=== PATIENT | male | born 1965 | race Caucasian/White ===

== ENCOUNTER → 2016-06-01 | Outpatient (CLI) | payer OTHER ==
[~2016-06-01] MED LIST: AMIL5TAB15 PO; AMLO-114 PO; CARB25TA12 PO; CARV12.52 PO; CIPR-255 PO; OXYC-57 PO
[2016-06-01 15:34] LABS: BASO % 0.6 %; BASO ABS # 0.04 K/uL (0-0.2); COMPLETE YES; EOS % 1.4 %; HEMATOCRIT 40.6 % (42-52); IG% 0.2 %; LYMPH % 27.6 %; MEAN CELL VOLUME 79.5 fL (80-100); MEAN CORPUSCULAR HEMOGLOBIN 28.2 pg (25-34); MEAN CORPUSCULAR HGB CONC 35.5 g/dl (32-36); MEAN PLATELET VOLUME 9.8 fL (7.4-10.4); MONO % 9.6 %; NEUT % 60.6 %; PLATELET COUNT 236 K/uL (130-400); RED BLOOD COUNT 5.11 M/uL (4.7-6.1); WHITE BLOOD COUNT 6.53 K/uL (4.8-10.8)
[2016-06-01 15:55] LABS: BLOOD UREA NITROGEN 9 mg/dl (7-18); BUN/CREATININE RATIO 11.9 (10-20); CALCIUM 8.7 mg/dl (8.5-10.1); CARBON DIOXIDE 29 mmol/L (21-32); CHLORIDE 102 mmol/L (98-107); CREATININE 0.79 mg/dl (0.60-1.40); GLUCOSE 83 mg/dl (70-99); POTASSIUM 3.8 mmol/L (3.5-5.1); SODIUM 139 mmol/L (136-145)
[2016-06-01 15:57] LABS: ALT/SGPT 24 U/L (12-78); AST/SGOT 15 U/L (15-37); BLOOD UREA NITROGEN 9 mg/dl (7-18); BUN/CREATININE RATIO 12.6 (10-20); CALCIUM 8.8 mg/dl (8.5-10.1); CARBON DIOXIDE 29 mmol/L (21-32); CHLORIDE 102 mmol/L (98-107); CREATININE 0.74 mg/dl (0.60-1.40); GLUCOSE 83 mg/dl (70-99); POTASSIUM 3.8 mmol/L (3.5-5.1); SODIUM 139 mmol/L (136-145)
[2016-06-01 15:59] LABS: ALB/GLOB RATIO 1.2 (0.9-2); ALKALINE PHOSPHATASE 69 U/L (45-117)
== END | disposition home or self-care (01) ==
LOC: C.LAB 14:41
PROVIDERS: ATTEND Surgery
DX: K80.20 Calculus of gallbladder without cholecystitis without obstruction (principal); E87.6 Hypokalemia

== ENCOUNTER → 2016-06-01 | Outpatient (CLI) | payer OTHER ==
--- NOTE | 2016-06-01 09:01 | DIAGNOSTIC IMAGING REPORT ---
ABDOMINAL ULTRASOUND, RIGHT UPPER QUADRANT HISTORY: Lower abdominal pain.. COMPARISON: Abdomen and pelvis CT 07/27/2015. FINDINGS: Pancreas: Obscured by overlying bowel gas. Liver: Slightly heterogeneous. However, no masses identified. Gallbladder: There are multiple stones filling the gallbladder. Gallbladder wall is borderline thickened at 3 mm. The technologist reported a positive sonographic Blount's sign. CBD: Mildly distended common bile duct at 7 mm. Right kidney: No hydronephrosis. There are 2 cysts within the lower pole with the largest measuring 5.4 cm. Miscellaneous: No ventral hernia identified by ultrasound. IMPRESSION: 1. Multiple gallstones filling the gallbladder with borderline gallbladder wall thickening. The technologist reported a positive sonographic Blount's sign. Therefore, this is concerning for acute cholecystitis. Clinical correlation recommended. 2. Right renal cysts. 3. The pancreas was obscured by overlying bowel gas. Electronically signed by: Alexys Mchugh M.D. 06/01/2016 9:00 AM Dictated Date/Time: 06/01/2016 8:57 AM
== END | disposition home or self-care (01) ==
LOC: C.ULTR 08:06
PROVIDERS: ATTEND Family Medicine
DX: R10.10 Upper abdominal pain, unspecified (principal); K80.20 Calculus of gallbladder without cholecystitis without obstruction; N28.1 Cyst of kidney, acquired; E87.6 Hypokalemia

== ENCOUNTER 2016-06-02 12:17 | Observation (INO) | payer OTHER ==
[2016-06-01 16:03] VITALS: BMI 25.0
[~2016-06-02] VITALS: Ht 180.3 cm; Wt 81.8 kg
--- NOTE | 2016-06-02 08:31 | History & Physical Bridge Note ---
H&P Re-Evaluation Bridge Note: I have examined the patient, reviewed the History & Physical and in the interval since the performance of the History & Physical I have noted the following changes of clinical significance: No changes noted
[~2016-06-02 12:17] MED LIST changes: -AMIL5TAB15 PO; -CIPR-255 PO; +LACTATED RINGER'S 1000ML 1,000 ML IV SCH; -OXYC-57 PO
[2016-06-02] MEDS ORDERED: AMIL5TAB15 PO (13:12)
[2016-06-02 13:14] VITALS: BP 157/97; PULSE 53; TEMP 36.6; O2SAT 98; Ht 180.3 cm; Wt 81.8 kg
--- NOTE | 2016-06-02 14:53 | History & Physical Bridge Note ---
H&P Re-Evaluation Bridge Note: I have examined the patient, reviewed the History & Physical and in the interval since the performance of the History & Physical I have noted the following changes of clinical significance: No changes noted so at bedside
[2016-06-02] MEDS ORDERED: MIDAZOLAM HCL 1 MG/ML 2ML VIAL ONE (14:57)
[2016-06-02] MEDS ORDERED: FENTANYL CITRATE INJ 50 MCG/1 ML 2 ML VIAL ONE ×2 (14:57→17:01)
[2016-06-02] MEDS ORDERED: PHENYLEPHRINE 100MCG/ML 5ML SYR IV PRN (15:30)
[2016-06-02] MEDS ORDERED: EpHEDrine SULFATE INJ 50 MG/ML AMP IV PRN (15:30)
[2016-06-02] MEDS ORDERED: ATROPINE SULFATE 0.1 MG/ML 5ML SYR IV PRN (15:30)
[2016-06-02] MEDS ORDERED: ONDANSETRON INJ 2 MG/ML 2 ML VIAL IV PRN ×2 (15:30→17:15)
[2016-06-02] MEDS ORDERED: PROPOFOL IV EMULSION 10 MG/ML 20 ML VIAL IV ONE (16:07)
[2016-06-02] MEDS ORDERED: ONDANSETRON INJ 2 MG/ML 2 ML VIAL ONE (16:07)
[2016-06-02] MEDS ORDERED: ROCURONIUM BROMIDE 10 MG/ML 5 ML VIAL ONE (16:07)
[2016-06-02] MEDS ORDERED: DiphenhydrAMINE HCL 50 MG/ML VIAL ONE (16:07)
[2016-06-02] MEDS ORDERED: LIDOCAINE HCL 2% 2 ML VIAL (20MG/ML) ONE (16:07)
[2016-06-02] MEDS ORDERED: CEFOXITIN SOD 1 GM VIAL ONE (16:34)
--- NOTE | 2016-06-02 16:43 | DIAGNOSTIC IMAGING REPORT ---
INTRAOPERATIVE CHOLANGIOGRAM HISTORY: Post cholecystectomy. FLUOROSCOPY TIME: 9 seconds. FINDINGS: Fluoroscopy was provided for an intraoperative cholangiogram status post cholecystectomy. Contrast was injected through the cystic duct remnant. The common bile duct is not well visualized on this study. There may be focal narrowing/stricture within the mid common bile duct. Contrast extends into the small bowel. Mild intrahepatic bile duct dilatation. IMPRESSION: Fluoroscopy provided for an intraoperative cholangiogram status post cholecystectomy. The common bile duct is not well visualized on this study. No definite filling defects. However, there may be an area of stricturing/narrowing within the mid common bile duct. However, this could be due to the poor contrast opacification. There is mild intrahepatic bile duct dilatation. Electronically signed by: Alexys Mchugh M.D. 06/02/2016 4:42 PM Dictated Date/Time: 06/02/2016 4:40 PM
[2016-06-02] MEDS ORDERED: NEOSTIGMINE METHYLSULFATE 5 MG/5 ML SYR ONE (16:55)
[2016-06-02] MEDS ORDERED: GLYCOPYRROLATE INJ 0.2 MG/ML VIAL ONE ×2 (16:55→17:36)
--- NOTE | 2016-06-02 17:01 | [facility] Post Operative Brief Note ---
Immediate Operative Summary Operative Date Jun 02, 2016. 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 Gallbladder Drains yunier per stab(# 19 yunier)
[2016-06-02] MEDS ORDERED: CONRAY 60% 50 ML VIAL INSTIL ONE (17:04)
[2016-06-02] MEDS ORDERED: LIDOCAINE/EPINEPHRINE 1% 20 ML VIAL INJ ONE (17:04)
[2016-06-02] MEDS ORDERED: OXYCODONE/ACETAMINOPHEN 5-325 TAB PO PRN (17:15)
[2016-06-02] MEDS: HYDROmorphone INJ 2 MG/ML SYR/VIAL IV PRN ×4 (17:32→17:47)
[2016-06-02] MEDS ORDERED: HYDROmorphone INJ 1 MG/ML SYR ONE (18:01)
--- NOTE | 2016-06-02 18:52 | Anesthesiology Progress Note ---
Anesthesia Post Op Note Date & Time Jun 02, 2016 at 18:52 Vital Signs Pain Intensity: 3 Vital Signs Past 12 Hours Date Time Temp Pulse Resp B/P Pulse Ox O2 Delivery O2 Flow Rate FiO2 06/02/16 18:19 143/98 06/02/16 18:19 143/98 06/02/16 18:17 62 12 06/02/16 18:17 61 12 89 06/02/16 18:17 61 12 89 06/02/16 18:17 62 12 06/02/16 18:13 136/105 06/02/16 18:13 136/105 06/02/16 18:12 63 17 06/02/16 18:12 63 17 06/02/16 18:12 62 17 89 06/02/16 18:12 62 17 89 06/02/16 18:08 128/91 06/02/16 18:08 128/91 06/02/16 18:07 54 18 06/02/16 18:07 52 18 87 06/02/16 18:07 54 18 06/02/16 18:07 52 18 87 06/02/16 18:06 63 16 06/02/16 18:06 65 16 87 06/02/16 18:05 131/87 06/02/16 18:03 147/100 06/02/16 18:01 73 22 06/02/16 18:01 72 22 89 06/02/16 17:58 139/99 06/02/16 17:56 48 11 06/02/16 17:56 48 11 91 06/02/16 17:53 146/93 06/02/16 17:51 75 18 88 06/02/16 17:51 75 18 06/02/16 17:50 36.6 74 19 138/92 94 Nasal Cannula 4 06/02/16 17:48 138/92 06/02/16 17:46 48 16 91 06/02/16 17:46 50 16 06/02/16 17:43 135/88 06/02/16 17:41 59 16 92 06/02/16 17:41 60 16 06/02/16 17:40 67 15 92 06/02/16 17:40 67 15 06/02/16 17:38 130/83 06/02/16 17:35 65 22 92 06/02/16 17:35 65 22 06/02/16 17:30 63 24 84 06/02/16 17:30 63 24 06/02/16 17:29 155/88 06/02/16 17:29 155/88 06/02/16 17:27 68 21 90 06/02/16 17:27 68 21 06/02/16 17:27 68 21 90 06/02/16 17:27 68 21 06/02/16 17:23 161/100 06/02/16 17:23 161/100 06/02/16 17:23 36.3 70 16 127/85 100 Nasal Cannula 10 06/02/16 17:22 29 06/02/16 17:22 67 29 06/02/16 17:22 67 29 06/02/16 17:22 29 06/02/16 17:18 127/85 06/02/16 17:18 127/85 06/02/16 17:17 72 21 95 06/02/16 17:17 71 21 06/02/16 17:17 72 21 95 06/02/16 17:17 71 21 06/02/16 13:14 36.6 53 18 157/97 98 Room Air Notes Mental Status: alert / awake / arousable, participated in evaluation Pt Amnestic to Procedure: Yes Nausea / Vomiting: adequately controlled Pain: adequately controlled Airway Patency, RR, SpO2: stable & adequate BP & HR: stable & adequate Hydration State: stable & adequate Anesthetic Complications: no major complications apparent
[2016-06-02 19:20] VITALS: BP 158/95; PULSE 92; TEMP 36.9; O2SAT 89
[2016-06-02] MEDS: OXYCODONE/ACETAMINOPHEN 5-325 TAB PO PRN (20:09)
[2016-06-02] MEDS: LACTATED RINGER'S 1000ML 1,000 ML IV SCH (20:13)
[2016-06-02 20:16] VITALS: BP 164/101; PULSE 95; TEMP 36.7; O2SAT 91
[2016-06-02 20:41] VITALS: O2SAT 89
[2016-06-02 20:44] VITALS: O2SAT 89
[2016-06-02] MEDS ORDERED: CARVEDILOL 12.5 MG TAB PO SCH (21:00)
[2016-06-02] MEDS: CARBIDOPA/LEVODOPA 25/100MG TAB PO SCH (21:21)
[2016-06-02 21:26] VITALS: BP 165/106; PULSE 98; TEMP 36.6; O2SAT 88
[2016-06-02] MEDS ORDERED: IV FLUIDS COMPLETED PRN (21:30)
[2016-06-02] MEDS: MoRPHine SULFATE 2 MG/ML CARP IV PRN (21:44)
[2016-06-02] MEDS: CEFOXITIN IV 2,000 MG in DEXTROSE 5% 50ML 50 ML IV SCH (21:44)
[2016-06-03] MEDS: OXYCODONE/ACETAMINOPHEN 5-325 TAB PO PRN ×2 (00:21→05:42)
[2016-06-03 00:29] VITALS: BP 149/87; PULSE 105; TEMP 36.8; O2SAT 92
--- NOTE | 2016-06-03 01:06 | OPERATIVE REPORT ---
DATE OF OPERATION: 06/02/2016 SURGEON: Dr. Maxwell. SLEEP TECH: Clemente Dillard PA-C. PREOPERATIVE DIAGNOSES: Acute and chronic cholecystitis and cholelithiasis. POSTOPERATIVE DIAGNOSES: Same. OPERATIVE PROCEDURE: Laparoscopic cholecystectomy, intraoperative cholangiogram. SUMMARY: The patient was brought into the operating room theater. The abdomen was prepped with Betadine solution and properly draped. The patient had an allergy to IODINE DYE. I asked the radiologist precaution to do a cholangiogram and he felt probably should preop with steroid and Benadryl, which we did. At this point, we made a small incision supraumbilically, sufficient enough to place a Veress needle, followed by a 5 mm trocar. The patient had a little umbilical hernia, we stayed away from that. The patient was placed in reverse Trendelenburg position, rotated to the left. Under direct visualization, a 5 mm epigastric and two 5 mm subcostal ports were placed. The gallbladder was not visualized at this time. The omentum was draped over the right lobe of the liver and what we could see was that the omentum was strictly adherent onto the gallbladder, almost as a thickened chronic inflammation. We could see the base of the gallbladder, really hard to grasp, almost significant as just a solitary stone. We then were even able to free up the omentum that was encasing the gallbladder in a sufficient way. As we elevated up, we created a window in the fundus of the gallbladder down to the neck where we were able then to divide the omental attachments to the liver and gallbladder. Once we elevated this, we could see the gallbladder was rock solid with stones, acutely and chronically inflamed. We at this point dissected out the triangle of Calot, identified the artery and doubly clipped and divided. The duct was similarly identified, it was larger than normal. We clipped it proximally to the takeoff of the cystic duct. A small opening was made in the cystic duct and actually there was a stone stuck into the neck of the gallbladder in the cystic duct. A #4 ureteral catheter transversing the abdominal wall was positioned in the cystic duct. Serial x-rays were taken which showed flow in the duodenum and no obvious obstruction that I could see, although the duodenum seemed to be overlying the distal common bile duct. The common bile duct was a little bit larger than normal, but no filling defect that I could appreciate. The catheter was then removed. The cystic duct was doubly clipped and divided securely and then the gallbladder was taken out in the antegrade fashion. We really had a difficult time freeing up in the liver bed the chronic inflammation of the gallbladder from the liver itself. We took as much as we could off. We actually placed pieces of gallbladder in a 5 mm bag, converted the epigastric area in a 10 mm bag, and we were able to use the retriever for stones to take out all this inspissated multi-cholesterol stones in the gallbladder. The remnant of the gallbladder that may have leftover to the liver itself we cauterized. Once we were finished, hemostasis appeared satisfactory considering the dissection we had to do. We suctioned out inferior superiorly. Then, I elected to drain with a 19 Anatoly drain, bring out in the epigastric area, taken out laterally, attached to skin edges with 2-0 silk suture. The area was then checked for hemostasis and appeared satisfactory. I placed a camera in the epigastric port to visualize the umbilical area, there were no adhesions in that area. We used 0 Vicryl sutures to suture the epigastric port site in [id number], the other ones 4-0 Monocryl. Steri-Strips applied. The procedure was tolerated well by the patient. Estimated blood loss approximately 15 mL. The patient was taken to recovery room in good condition. I attest to the content of the Intraoperative Record and any orders documented therein. Any exceptions are noted below. YUVAL
[2016-06-03] MEDS: LACTATED RINGER'S 1000ML 1,000 ML IV SCH (03:04)
[2016-06-03] MEDS: CEFOXITIN IV 2,000 MG in DEXTROSE 5% 50ML 50 ML IV SCH ×3 (04:08→10:16)
[2016-06-03 04:39] VITALS: BP 149/102; PULSE 88; TEMP 36.8; O2SAT 95
[2016-06-03 07:06] LABS: BASO % 0.1 %; BASO ABS # 0.01 K/uL (0-0.2); COMPLETE YES; HEMATOCRIT 43.3 % (42-52); IG% 0.4 %; LYMPH % 7.2 %; LYMPH ABS # 1.02 K/uL (1.2-3.4); MEAN CELL VOLUME 80.3 fL (80-100); MEAN CORPUSCULAR HEMOGLOBIN 28.2 pg (25-34); MEAN CORPUSCULAR HGB CONC 35.1 g/dl (32-36); MEAN PLATELET VOLUME 10.5 fL (7.4-10.4); MONO % 9.6 %; NEUT % 82.7 %; PLATELET COUNT 274 K/uL (130-400); RED BLOOD COUNT 5.39 M/uL (4.7-6.1)
--- NOTE | 2016-06-03 07:23 | SURGERY PROGRESS NOTE ---
DATE: 06/03/2016 HISTORY OF PRESENT ILLNESS: Denzel is first postoperative day status post laparoscopic cholecystectomy and cholangiogram. He is resting comfortably. He feels a lot better than he has been in the last few months. Intraoperative findings were discussed with the patient. PHYSICAL EXAMINATION: His last vitals showed him a temperature of 36.8, pulse 88, respirations 18, blood pressure 149/102, and O2 sats 95 on room air. I\T\O, he had 450 urine overnight. Anatoly drainage is about 40 mL of serosanguineous, nonbilious. The abdomen is soft. LABORATORY DATA: The lab this morning showed him a white count of 14.10 with a left shift. Chemistries are still pending. ASSESSMENT AND PLAN: At this point, we will go ahead and advance him to a regular diet and reevaluate him later today, but I suspect he will be discharged. We can send him home on some Cipro.
[2016-06-03 07:33] LABS: BUN/CREATININE RATIO 6.4 (10-20); CALCIUM 9.2 mg/dl (8.5-10.1); CREATININE 1.2 mg/dl (0.60-1.40); POTASSIUM 4.1 mmol/L (3.5-5.1)
[2016-06-03 07:58] VITALS: BP 150/98; PULSE 82; TEMP 36.6; O2SAT 95
--- NOTE | 2016-06-03 08:24 | Anesthesiology Progress Note ---
Anesthesia Post Op Note Date & Time Jun 03, 2016 at 08:24 Vital Signs Pain Intensity: 4.0 Vital Signs Past 12 Hours Date Time Temp Pulse Resp B/P Pulse Ox O2 Delivery O2 Flow Rate FiO2 06/03/16 07:58 36.6 82 17 150/98 95 Room Air 06/03/16 04:39 36.8 88 18 149/102 95 Room Air 06/03/16 00:29 36.8 105 18 149/87 92 Room Air 06/03/16 00:25 Room Air 06/02/16 21:26 36.6 98 20 165/106 88 Nasal Cannula 3.0 06/02/16 20:44 89 Nasal Cannula 3.0 06/02/16 20:41 89 Nasal Cannula 3.0 Notes Mental Status: alert / awake / arousable, participated in evaluation Pt Amnestic to Procedure: Yes Nausea / Vomiting: adequately controlled Pain: adequately controlled Airway Patency, RR, SpO2: stable & adequate BP & HR: stable & adequate Hydration State: stable & adequate Anesthetic Complications: no major complications apparent
[2016-06-03 08:53] VITALS: O2SAT 95
[2016-06-03] MEDS: CARBIDOPA/LEVODOPA 25/100MG TAB PO SCH (09:00)
[2016-06-03] MEDS ORDERED: AMLODIPINE BESYLATE 5 MG TAB PO SCH (09:00)
[2016-06-03] MEDS: MoRPHine SULFATE 2 MG/ML CARP IV PRN (09:10)
[2016-06-03] MEDS ORDERED: OXYC-57 PO (10:41)
[2016-06-03 11:53] VITALS: BP 156/100; PULSE 76; TEMP 37; O2SAT 95
--- NOTE | 2016-06-03 12:11 | Discharge Instructions ---
Discharge Instructions Admission Reason for Admission: Symptomatic Cholelithiasis Discharge Discharge Diagnosis / Problem: Laparoscopic cholecystectomy Discharge Goals Goal(s): Decrease discomfort Activity Recommendations Activity Limitations: per Instructions/Follow-up section Lifting Limitations: no more than 10 pounds Shower/Bathe: no limitations (ok to shower today) Driving or Machine Use: resume 3 days after discharge . Instructions / Follow-Up Instructions / Follow-Up Next Mon- to have drain removed, [phone] Current Hospital Diet Patient's current hospital diet: Regular Diet Discharge Diet Recommended Diet: Regular Diet Procedures Procedures Performed: Laparoscopic Cholecystectomy with Cholangiogram Pending Studies Studies pending at discharge: no Medical Emergencies . Who to Call and When: Medical Emergencies: If at any time you feel your situation is an emergency, please call 911 immediately. . Non-Emergent Contact Non-Emergency issues call your: Surgeon Call Non-Emergent contact if: you have a fever, temperature is above 101.5, your pain is not controlled, your pain is worsening, wound has increased redness , wound has increased pain . "Provider Documentation" section prepared by Clemente Dillard. VTE Core Measure Inpt VTE Proph given/why not?: SCD's
[2016-06-03 12:35] VITALS: BP 156/100; PULSE 76; TEMP 37; O2SAT 95
[2016-06-03] MEDS ORDERED: CIPR-255 PO (17:21)
--- NOTE | 2016-06-04 02:15 | DISCHARGE SUMMARY ---
ATTENDING: Dr. Maxwell. PRIMARY DISCHARGE DIAGNOSES: Acute and chronic cholecystitis and cholelithiasis. SECONDARY DISCHARGE DIAGNOSES: Hypertension. PROCEDURE PERFORMED: Laparoscopic cholecystectomy with intraoperative cholangiogram. HOSPITAL COURSE: The patient is a 51-year-old male admitted through same day and taken to the operating room for laparoscopic cholecystectomy. He did have acute cholecystitis, which we suspected in the office. He had a very friable gallbladder. A drain was placed. He was transferred to the surgical floor for overnight observation. On postoperative day #1, he was tolerating, advancing to a regular diet and oral analgesics. KHADIJAH drainage was 40 mL overnight. His white count was 14,000 and had been elevated preoperatively. His hemoglobin was 15.2. His abdomen was benign, incisions were dry. He was stable for discharge. DISCHARGE INSTRUCTIONS: Discharge home. Follow up with Dr. Maxwell's office on Monday or Monday to have the drain removed. He may shower with the drain. DISCHARGE MEDICATIONS: Percocet 1-2 tablets every 4 hours as needed. He was given a prescription for Cipro 500 mg p.o. b.i.d. which he should continue. Also, resume other home medications amiloride 5 mg daily, Norvasc 10 mg daily, Sinemet 25/100 mg b.i.d., Coreg 12.5 mg p.o. daily. MTDD
== END 2016-06-03 13:03 | disposition home or self-care (01) ==
LOC: ENRESERVTM → ENRESERVDT → C.OR 12:17 → C.MSW 17:10
PROVIDERS: ADMIT Surgery; ATTEND Surgery
DX: K80.12 Calculus of gallbladder with acute and chronic cholecystitis without obstruction (principal); I10 Essential (primary) hypertension; Z48.815 Encounter for surgical aftercare following surgery on the digestive system; T85.698A Other mechanical complication of other specified internal prosthetic devices, implants and grafts, initial encounter; Y83.6 Removal of other organ (partial) (total) as the cause of abnormal reaction of the patient, or of later complication, without mention of misadventure at the time of the procedure; Z90.49 Acquired absence of other specified parts of digestive tract

== ENCOUNTER 2016-06-03 16:39 | Emergency (ER) | payer OTHER ==
[~2016-06-03] VITALS: Ht 180.3 cm; Wt 82.9 kg
[~2016-06-03 16:39] MED LIST changes: +AMIL5TAB15 PO; -LACTATED RINGER'S 1000ML 1,000 ML IV SCH; +OXYC-57 PO
[2016-06-03 16:42] VITALS: TEMP 36.9; Ht 180.3 cm; Wt 82.9 kg
--- NOTE | 2016-06-03 17:13 | EMERGENCY ROOM VISIT NOTE ---
History Report prepared by Jerry: Sam Christopher Under the Supervision of: Dr. Manuel Levy D.O. First contact with patient: 16:54 Chief Complaint: BLEEDING Stated Complaint: EXCESSIVE BLEEDING AT SURGICAL SITE History of Present Illness The patient is a 51 year old male who presents to the Emergency Room due to concerns over bleeding form his surgical wound. The patient had his gallbladder removed less than 24 hours prior to this visit. He was discharged from his surgery at 1230 this afternoon, roughly 6 hours prior to arrival. When he got home the wound began to bleed significantly. He went to another emergency department, but signed himself out due to lack of attention from the physicians there. The patient states that he has not had any bowel movements in a while. He denies headache, change in vision, fevers, chest pain, shortness of breath, nausea, vomiting, diarrhea, pain with urination, and melena. 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 A total of 10 systems reviewed and were otherwise negative. Past Medical & Surgical Medical Problems: (1) Cholecystitis Family History No pertinent family history secondary to case. Social History Smoking Status: Never Smoker Marital Status: Housing Status: lives with family Occupation Status: employed Current/Historical Medications Scheduled Amiloride Hcl (Amiloride Hcl), 5 MG PO DAILY Amlodipine (Norvasc), 10 MG PO QAM Carbidopa/Levodopa (Sinemet 25MG/100MG), 1 TAB PO BID Carvedilol (Coreg), 12.5 MG PO HS Ciprofloxacin Hcl (Cipro), 500 MG PO BID Scheduled PRN Oxycodone/Acetaminophen 5MG/325MG (Percocet 5MG/325MG), 1-2 TABLETS PO Q4H PRN for Pain Allergies Coded Allergies: Iodinated Diagnostic Agents (Verified Allergy, Unknown, HIVES, 06/02/16) PATIENT IS UNSURE ABOUT TOPICAL IODINE. Physical Exam Vital Signs Date Time Temp Pulse Resp B/P Pulse Ox O2 Delivery O2 Flow Rate FiO2 06/03/16 17:17 75 16 128/82 95 Room Air 06/03/16 16:42 36.9 80 20 135/92 94 Room Air Physical Exam GENERAL: sitting up in bed, non-toxic but anxious appearing. EYE EXAM: normal conjunctiva. OROPHARYNX: no exudate, no erythema, lips, buccal mucosa, and tongue normal and mucous membranes are moist NECK: supple, no nuchal rigidity, no adenopathy, non-tender LUNGS: Clear to auscultation. Normal chest wall mechanics HEART: no murmurs, S1 normal and S2 normal ABDOMEN: There is a KHADIJAH drain located in the RUQ with minimal tenderness to palpation. suture in place, no leakage around the wound. abdomen soft, non- tender, normo-active bowel sounds, no masses, no rebound or guarding. SKIN: no rashes and no bruising UPPER EXTREMITIES: upper extremities are grossly normal. LOWER EXTREMITIES: No pitting edema. NEURO EXAM: Normal sensorium, cranial nerves II-XII grossly intact, normal speech, no gross weakness of arms, no gross weakness of legs. SURGICAL SITE: There is no leakage around the drain, there is dark blood filling 1/4 of the bulb. A clot was removed by surgery within the drain. He was evaluated following surgical ideation Medical Decision & Procedures ED Course ED COURSE: Vital signs were reviewed and showed Normal Vitals. The patients medical record was reviewed The above diagnostic studies were performed and reviewed. ED treatments and interventions as stated above. 1655: The patient was evaluated in room C5. A complete history and physical examination was performed. 1707: I am calling the previous emergency department to see if they have the results of the patient's blood work. 1711: I reviewed the patient's blood work, it showed; Hematocrit of 44, platelets 256, White count of 18, hemoglobin of 14.7, sodium of 133, potassium of 4, chloride of 94 and creatinine 0.9. 1717: I discussed the case with Dr. Maxwell, he agrees to discharge the patient and follow up as an outpatient. 1734: Upon reevaluation, the patient feels better about the status of his surgical site.I discussed my findings with the patient and he understands and agrees with the treatment plan. Based on the patients age, coexisting illnesses, exam and lab findings the decision to treat as an outpatient was made. The patient remained stable while under my care. The patient appeared well at the time of discharge. Medical Decision Patient is a 51 -year-old male who presents the ER for postop or recheck. Patient had his gallbladder removed and was discharged today. Patient presents outside hospital with bleeding around the KHADIJAH drain. He was transferred here. Blood work was done there and showed a hemoglobin of 14 and hematocrit. Vitals are stable. He came here to be evaluated by surgery. Surgery saw him at bedside. They removed a clot which was obstructing the KHADIJAH drain. Following this he continued drain. With his stable vitals and stable hemoglobin I discussed this with general surgery. They recommended no additional imaging as he is unchanged from when they discharged him and having him follow-up as an outpatient. Discussed with Pt concerning signs and symptoms to watch out for. Pt was instructed to follow up with their PCP and discussed with the patient their option to return to the ED at anytime for persistent or worsening symptoms. The appropriate anticipatory guidance and out-patient management, including indications for return to the emergency department, were explained at length to the patient and understood. Consults Time Called: 1723 Consulting Physician: Dr. Maxwell Returned Call: 1714 I discussed the case with Dr. Maxwell, he agrees to discharge the patient and follow up as an outpatient. Impression Primary Impression: Encounter for post surgical wound check Scribe Attestation The scribe's documentation has been prepared under my direction and personally reviewed by me in its entirety. I confirm that the note above accurately reflects all work, treatment, procedures, and medical decision making performed by me. Departure Information Dispostion Home / Self-Care Referrals Azael Messer M.D. (PCP) Forms HOME CARE DOCUMENTATION FORM, IMPORTANT VISIT INFORMATION Patient Instructions My [facility] Additional Instructions Please follow up with your general surgery as previously set up. Any worsening of your symptoms, please return to the ED immediately. This includes passing out, lightheaded dizziness, diffuse weakness, worsening pain, fevers greater than 100.4, bleeding around the drain, or any other concerning signs or symptoms from your standpoint.
[2016-06-03 17:17] VITALS: BP 128/82; PULSE 75; O2SAT 95
[2016-06-03] MEDS ORDERED: CIPR-255 PO (17:21)
== END 2016-06-03 17:37 | disposition home or self-care (01) ==
LOC: C.EDB 16:40 → C.EDC 17:37
DX: Z48.815 Encounter for surgical aftercare following surgery on the digestive system (principal); T85.698A Other mechanical complication of other specified internal prosthetic devices, implants and grafts, initial encounter; Y83.6 Removal of other organ (partial) (total) as the cause of abnormal reaction of the patient, or of later complication, without mention of misadventure at the time of the procedure; Z90.49 Acquired absence of other specified parts of digestive tract

== ENCOUNTER → 2016-07-05 | Outpatient (CLI) | payer OTHER ==
[~2016-07-05] MED LIST changes: +CIPR-255 PO; +MethylPREDNISolone HOME PACK 16 MG TAB PO SCH
--- NOTE | 2016-07-08 07:19 | PULMONARY FUNCTION TEST ---
INTERPRETATION: The spirometry reveals moderate obstruction with no change in the airflow with the use of albuterol. Lung volumes are normal. The diffusion capacity is normal as well. There is some flattening of the inspiratory loop of the full volume curve suggesting a possible variable extrathoracic obstruction. ENT evaluation would be helpful.
== END | disposition home or self-care (01) ==
LOC: C.CTS 12:10
PROVIDERS: ATTEND Family Medicine
DX: R91.1 Solitary pulmonary nodule (principal); R06.00 Dyspnea, unspecified

== ENCOUNTER → 2016-07-14 | Outpatient (CLI) | payer OTHER ==
[~2016-07-14] MED LIST changes: -MethylPREDNISolone HOME PACK 16 MG TAB PO SCH; +OPTIRAY 320 IV PRN
--- NOTE | 2016-07-14 11:50 | DIAGNOSTIC IMAGING REPORT ---
CT SCAN OF THE CHEST WITH IV CONTRAST CLINICAL HISTORY: Follow-up pulmonary nodule. Chronic atypical chest pain. COMPARISON STUDY: Chest CT dated 01/01/2016. TECHNIQUE: Following the IV administration of 94 cc of Optiray 320, CT scan of the thorax was performed from the thoracic inlet to the upper abdomen. Images are reviewed in the axial, sagittal, and coronal planes. IV contrast was administered without complication. The patient was premedicated for history of contrast allergy. CT DOSE: 303.82 mGy.cm FINDINGS: Thyroid: Imaged portions of the thyroid gland are normal in size and attenuation. Thoracic aorta: The thoracic aorta is normal in caliber and demonstrates 3-vessel variant arch anatomy, noting a bovine arch. The left vertebral artery arises directly from the arch. No dissection is seen. Pulmonary vasculature: The pulmonary trunk is normal in caliber. There are no filling defects identified in the central pulmonary vessels to indicate pulmonary embolus. Note that this examination was not protocoled for evaluation of the pulmonary arteries. Heart: The heart is enlarged and without pericardial effusion. Lungs and pleural spaces: Evaluation of the lung parenchyma is modestly degraded by respiratory motion artifact. Emphysema is noted. There is no airspace consolidation or pleural effusion the trachea and central airways are clear. A 3 mm right apical nodule seen on image #66 and a 2 mm left upper lobe nodule seen on image #92 are unchanged. Additional small nodules seen previously are no longer identified and may have been on an inflammatory basis. Mediastinum: There is no mediastinal lymphadenopathy. Pamela: Clear. Axillae: There is no axillary lymphadenopathy. Upper abdomen: There is a small hiatal hernia. The liver appears enlarged and steatotic. Cholecystectomy clips are noted and there is mild central intrahepatic biliary ductal dilatation. Trace and minimally complex perihepatic and perisplenic fluid is identified. A 1.7 cm cyst is noted in the spleen on image #282. A subcentimeter cortical hypodensity in the upper pole of left kidney likely represents a cyst but is too small for definitive characterization. Skeletal structures: No lytic or blastic bony lesions are seen. IMPRESSION: 1. Cardiomegaly and emphysema. 2. There is no airspace consolidation or pleural effusion. 3. There are 2 low suspicion pulmonary nodules identified measuring up to 3 mm. These are unchanged from 01/01/2016. Additional small nodules identified previously are no longer apparent and may have been on an inflammatory basis. 4. Hepatomegaly and hepatic steatosis. 5. There has been interval cholecystectomy as compared to 01/01/2016. There is trace and minimally complex perisplenic and perihepatic fluid. This is nonspecific and may be related to recent surgery. Clinical correlation will be essential. 6. Additional findings as above. Electronically signed by: Paramjit Guerrero M.D. 07/14/2016 11:49 AM Dictated Date/Time: 07/14/2016 11:40 AM
== END | disposition home or self-care (01) ==
LOC: C.CTS 11:01
PROVIDERS: ATTEND Family Medicine
DX: R91.1 Solitary pulmonary nodule (principal); R06.00 Dyspnea, unspecified; I51.7 Cardiomegaly; J43.9 Emphysema, unspecified; R16.0 Hepatomegaly, not elsewhere classified; K76.0 Fatty (change of) liver, not elsewhere classified

== ENCOUNTER → 2016-08-03 | Outpatient (CLI) | payer OTHER ==
[~2016-08-03] MED LIST changes: -OPTIRAY 320 IV PRN
--- NOTE | 2016-08-03 09:46 | DIAGNOSTIC IMAGING REPORT ---
ABDOMINAL ULTRASOUND COMPLETE HISTORY: Pain ABDOMINAL PAIN. COMPARISON: None. FINDINGS: Pancreas: Poorly seen Bowel content Liver: Mild fatty replacement Gallbladder: Prior cholecystectomy CBD: 7 mm Kidneys: Negative for hydronephrosis. 5 cm right renal cyst. Spleen: Normal in size. Aorta: Normal in caliber. IVC: Patent. IMPRESSION: 1. 5 cm right renal cyst. 2. Mild fatty infiltration of liver. 3. Otherwise negative study Electronically signed by: Williams Mancia M.D. 08/03/2016 9:44 AM Dictated Date/Time: 08/03/2016 9:39 AM
[2016-08-03 13:37] LABS: BASO % 0.8 %; BASO ABS # 0.05 K/uL (0-0.2); COMPLETE YES; HEMATOCRIT 41.3 % (42-52); IG% 0.2 %; LYMPH % 27.8 %; MEAN CELL VOLUME 79.9 fL (80-100); MEAN CORPUSCULAR HEMOGLOBIN 27.9 pg (25-34); MEAN CORPUSCULAR HGB CONC 34.9 g/dl (32-36); MEAN PLATELET VOLUME 10.2 fL (7.4-10.4); MONO % 9.7 %; NEUT % 60.5 %; PLATELET COUNT 260 K/uL (130-400); RED BLOOD COUNT 5.17 M/uL (4.7-6.1); WHITE BLOOD COUNT 6.11 K/uL (4.8-10.8)
[2016-08-03 14:10] LABS: ALT/SGPT 17 U/L (12-78); AMYLASE 50 U/L (25-115); BLOOD UREA NITROGEN 5 mg/dl (7-18); BUN/CREATININE RATIO 6.3 (10-20); CALCIUM 8.9 mg/dl (8.5-10.1); CARBON DIOXIDE 29 mmol/L (21-32); CHLORIDE 103 mmol/L (98-107); CREATININE 0.84 mg/dl (0.60-1.40); GLUCOSE 91 mg/dl (70-99); POTASSIUM 3.7 mmol/L (3.5-5.1); SODIUM 139 mmol/L (136-145)
[2016-08-03 14:13] LABS: ALB/GLOB RATIO 1.1 (0.9-2); ALKALINE PHOSPHATASE 74 U/L (45-117); AST/SGOT 13 U/L (15-37)
== END | disposition home or self-care (01) ==
LOC: C.ULTRBC 08:46
PROVIDERS: ATTEND Family Medicine
DX: R10.10 Upper abdominal pain, unspecified (principal)

== ENCOUNTER → 2016-11-02 | Outpatient (CLI) | payer OTHER ==
[~2016-11-02] MED LIST changes: +PERFLUTREN LIPID MICROSPHERE (DEFINITY) IV ONE
--- NOTE | 2016-11-02 19:55 | EXERCISE STRESS ECHO ---
*NOTICE TO RECEIVING [employer] This information is strictly Confidential and protected under [place] law. [place] law prohibits you from making any further disclosure of this information unless further disclosure is expressly permitted by the written consent of the person to whom it pertains or is authorized by law. A general authorization for the release of medical or other information is not sufficient for this purpose. Hospital accepts no responsibility if the information is made available to any other person, INCLUDING THE PATIENT. Interpretation Summary * Name: FORREST LEE Study Date: 11/02/2016 10:54 AM BP: 153/98 mmHg * Patient Location: [facility] HR: 48 * : 1965 (M/d/yyyy) Gender: Male Height: 71 in * Age: 51 yrs Ethnicity: [place] Weight: 180 lb * Ordering Physician: Azael Messer * Referring Physician: Azael Messer * Performed By: Yumiko Rdz * * Reason For Study: EXERTIONAL SUBSTERNAL PAIN/ NEAR SYNCOPE * BSA: 2.0 m2 * Resting hypertension. Normal rate of rise of systolic blood pressure with exercise. * Normal ECG and echocardiographic response to exercise to 77 percent of the maximum predicted heart rate.This was at a high work load. * Normal resting biventricular systolic function. * Mild aortic root and left atrial dilatation. * No significant valvular abnormalities noted. * Exercise capacity is above average. Procedure Details * ECHOEX, CPT #[id number] * ECHO DOPPLER, CPT #[id number] * ECHO COLOR FLOW, CPT #[id number] * A contrast injection of Definity was performed to improve assessment of LV function. * Contrast was injected into an intravenous site in the left arm. * One vial of Definity ultrasound contrast was diluted in normal saline to a total volume of 10 ml. A total of '6' ml of solution was administered during imaging. * Lot # [id number] of Definity utilized for procedure. * Expiration date 12/16. * The attending nurse who injected the contrast agent was ZANDRA BOSE RN. Left Ventricle * The left ventricle is normal in size. * There is normal left ventricular wall thickness. * Ejection Fraction = 65-70%. * Left ventricular systolic function is normal. * A full diastolic examination was done with clinical findings of Class I diastolic dysfunction. * The left ventricular wall motion is normal at rest. * Resting wall motion: Normal. Stress wall motion: Appropriate increase in Left ventricular systolic function and decrease in cavity size. No stress induced segmental wall motion abnormalities. * The left ventricular ejection fraction increases normally with stress. The left ventricular end-systolic cavity size reduces post-stress (normal response). The left ventricular wall motion with stress is normal. Right Ventricle * The right ventricle is normal in size and function. * The right ventricular systolic function is normal as assessed by tricuspid annular plane systolic excursion (TAPSE) (normal >1.5 cm). Atria * The left atrium is mildly dilated. * Right atrial size is normal. * No ASD detected; PFO is not assessed. Mitral Valve * The mitral valve is normal. * There is no mitral valve stenosis. * There is no mitral regurgitation noted. Tricuspid Valve * The tricuspid valve is not well visualized, but is grossly normal. * There is no tricuspid stenosis. * Significant tricuspid regurgitation is absent. Aortic Valve * The aortic valve is trileaflet. * The aortic valve opens well. * Aortic stenosis is absent. * No aortic regurgitation is present. Pulmonic Valve * The pulmonic valve is not well visualized. * The pulmonary valve is inadequately visualized, but the Doppler data is adequate for interpretation. * Pulmonic stenosis is absent. * Trace pulmonic valvular regurgitation. Great Vessels * Mild aortic root dilatation. Pericardium * There is no pericardial effusion. Stress Parameters * Sinus bradycardia, otherwise normal. * The stress ECG response was normal * Rest heart rate was '48' BPM. * Rest blood pressure was '153/98' * Maximum heart rate achieved was 130 bpm. * Maximum heart rate was 77 % of maximum age-predicted heart rate. * Maximum blood pressure was '189/90' * Total exercise time was '12:47' * Maximum exercise MET level achieved was '15.0' METS * Maximum treadmill speed was '5.10' miles per hour. * Maximum treadmill elevation was '18.00'% grade. * Exercise was terminated due to 'fatigue and shortness of breath.' * Target Heart Rate was not achieved due to fatigue. * Normal blood pressure response to exercise. * Exercise was stopped due to fatigue. MMode 2D Measurements and Calculations IVSd 1.0 cm IVSs 2.7 cm LVIDd 5.0 cm LVIDs 3.2 cm LVPWd 0.95 cm LVPWs 1.7 cm IVS/LVPW 1.1 FS 36.2 % EDV(Teich) 118.7 ml ESV(Teich) 40.8 ml EF(Teich) 65.7 % EDV(cubed) 125.7 ml ESV(cubed) 32.6 ml EF(cubed) 74.1 % % IVS thick 162.4 % % LVPW thick 75.1 % LV mass(C)d 181.1 grams LV mass(C)dI 89.8 grams/m\S\2 LV mass(C)s 335.6 grams LV mass(C)sI 166.4 grams/m\S\2 CO(Teich) 3.6 l/min CI(Teich) 1.8 l/min/m\S\2 SV(Teich) 78.0 ml SI(Teich) 38.7 ml/m\S\2 CO(cubed) 4.3 l/min CI(cubed) 2.1 l/min/m\S\2 SV(cubed) 93.1 ml SI(cubed) 46.2 ml/m\S\2 Ao root diam 4.1 cm Ao root area 13.0 cm\S\2 ACS 1.7 cm LA dimension 4.1 cm asc Aorta Diam 3.6 cm LA/Ao 1.0 LVOT diam 2.2 cm LVOT area 3.9 cm\S\2 LVAd ap4 36.1 cm\S\2 LVLd ap4 9.5 cm EDV(MOD-sp4) 112.0 ml LVAs ap4 19.0 cm\S\2 LVLs ap4 8.2 cm ESV(MOD-sp4) 36.0 ml EF(MOD-sp4) 67.9 % LVAd ap2 35.3 cm\S\2 LVLd ap2 9.1 cm EDV(MOD-sp2) 116.0 ml LVAs ap2 17.5 cm\S\2 LVLs ap2 7.4 cm ESV(MOD-sp2) 40.0 ml EF(MOD-sp2) 65.5 % CO(MOD-sp4) 3.5 l/min CI(MOD-sp4) 1.7 l/min/m\S\2 SV(MOD-sp4) 76.0 ml SI(MOD-sp4) 37.7 ml/m\S\2 CO(MOD-sp2) 3.5 l/min CI(MOD-sp2) 1.7 l/min/m\S\2 SV(MOD-sp2) 76.0 ml SI(MOD-sp2) 37.7 ml/m\S\2 Doppler Measurements and Calculations MV E max payal 47.6 cm/sec MV A max payal 61.0 cm/sec MV E/A 0.78 MV dec time 0.43 sec Ao V2 max 82.5 cm/sec Ao max PG 2.7 mmHg Ao max PG (full) 0.24 mmHg LATISHA(V,A) 3.8 cm\S\2 LATISHA(V,D) 3.8 cm\S\2 LV V1 max PG 2.5 mmHg LV V1 max 78.8 cm/sec PA V2 max 46.3 cm/sec PA max PG 0.86 mmHg PI end-d payal 79.1 cm/sec
== END | disposition home or self-care (01) ==
LOC: C.CPL 10:25
PROVIDERS: ATTEND Family Medicine
DX: R07.9 Chest pain, unspecified (principal); R55 Syncope and collapse

== ENCOUNTER → 2016-12-15 | Outpatient (CLI) | payer OTHER ==
[~2016-12-15] MED LIST changes: -OXYC-57 PO; -PERFLUTREN LIPID MICROSPHERE (DEFINITY) IV ONE
--- NOTE | 2016-12-15 13:51 | DIAGNOSTIC IMAGING REPORT ---
CHEST 2 VIEWS ROUTINE CLINICAL HISTORY: EMPHYSEMA-WENT TO RESP CARE FIRST dyspnea COMPARISON STUDY: 12/20/2015 FINDINGS: Mild emphysematous change. Lungs are clear. Diaphragms are smooth. Costophrenic angles are sharp. IMPRESSION: Mild emphysematous change. No acute process. The above report was generated using voice recognition software. It may contain grammatical, syntax or spelling errors. Electronically signed by: Williams Mancia M.D. 12/15/2016 1:49 PM Dictated Date/Time: 12/15/2016 1:44 PM
--- NOTE | 2016-12-16 09:54 | PULMONARY FUNCTION TEST ---
CLINICAL DATA: 51-year-old male with a height of 71 inches and a weight of [address] Alessandro Hooker for evaluation of emphysema. Spirometry pre- and post-bronchodilator, lung volumes, and diffusion capacity were performed. FINDINGS: Prebronchodilator spirometry demonstrates mild obstructive airways disease. FVC was 102% of predicted. FEV1 was 78% of predicted. [id number] was 42% of predicted. There was significant improvement after inhaled bronchodilator. FVC improved 9% to 110% of predicted. FEV1 improved 19% to 93% of predicted. [id number] improved 47% to 61% of predicted. Lung volumes were normal with a residual volume of 94% of predicted. Diffusion capacity was normal at 98% of predicted. IMPRESSION: Mild obstructive airways disease with significant improvement after inhaled bronchodilator.
== END | disposition home or self-care (01) ==
LOC: C.RC 12:21
PROVIDERS: ATTEND Internal Medicine Pulmonary Disease
DX: J43.9 Emphysema, unspecified (principal)

== ENCOUNTER → 2017-05-09 | Outpatient (CLI) | payer OTHER ==
[2017-05-09 14:37] LABS: BASO % 0.8 %; BASO ABS # 0.05 K/uL (0-0.2); EOS ABS # 0.06 K/uL (0-0.5); HEMATOCRIT 43.2 % (42-52); HEMOGLOBIN 15.2 g/dL (14.0-18.0); IG# 0.01 K/uL (0.00-0.02); LYMPH % 30.6 %; LYMPH ABS # 1.89 K/uL (1.2-3.4); MEAN CELL VOLUME 80.1 fL (80-100); MEAN CORPUSCULAR HEMOGLOBIN 28.2 pg (25-34); MEAN CORPUSCULAR HGB CONC 35.2 g/dl (32-36); MEAN PLATELET VOLUME 9.7 fL (7.4-10.4); MONO % 8.3 %; MONO ABS # 0.51 K/uL (0.11-0.59); NEUT % 59.1 %; NEUT ABS # 3.66 K/uL (1.4-6.5); PLATELET COUNT 196 K/uL (130-400); RED CELL DISTRIBUTION WIDTH CV 14.3 % (11.5-14.5); RED CELL DISTRIBUTION WIDTH SD 40.8 fL (36.4-46.3); WHITE BLOOD COUNT 6.18 K/uL (4.8-10.8)
[2017-05-09 16:56] LABS: ALBUMIN 3.8 gm/dl (3.4-5.0); ALT/SGPT 24 U/L (12-78); AST/SGOT 18 U/L (15-37); BLOOD UREA NITROGEN 10 mg/dl (7-18); CALCIUM 8.9 mg/dl (8.5-10.1); CARBON DIOXIDE 29 mmol/L (21-32); CHOLESTEROL 165 mg/dl (0-200); CREATININE 0.79 mg/dl (0.60-1.40); GLUCOSE 71 mg/dl (70-99); POTASSIUM 4.1 mmol/L (3.5-5.1); SODIUM 133 mmol/L (136-145); URIC ACID 4.3 mg/dl (2.6-7.2)
[2017-05-09 17:11] LABS: ALKALINE PHOSPHATASE 77 U/L (45-117); LDL CHOLESTEROL CALCULATED 71 mg/dl; TOTAL PROTEIN 7.4 gm/dl (6.4-8.2); TRANSFERRIN 309 mg/dl (200-360)
[2017-05-11 12:03] LABS: ANTI-SS-A <1.0 NEG AI (<1.0 NEG); ANTI-SS-B <1.0 NEG AI (<1.0 NEG)
== END | disposition home or self-care (01) ==
LOC: C.LAB 13:38
PROVIDERS: ATTEND Family Medicine
DX: E88.81 Metabolic syndrome and other insulin resistance (principal); E55.9 Vitamin D deficiency, unspecified; D51.9 Vitamin B12 deficiency anemia, unspecified; E78.9 Disorder of lipoprotein metabolism, unspecified; R53.83 Other fatigue

== ENCOUNTER → 2017-06-13 | Outpatient (CLI) | payer OTHER ==
--- NOTE | 2017-06-13 12:18 | DIAGNOSTIC IMAGING REPORT ---
CERVICAL SPINE W/O CT DOSE: 477.36 mGycm HISTORY: Pain. Neuropathy. CERVICAL DISC DISEASE W/NEUROPATHY TECHNIQUE: Multiaxial CT images of the cervical spine were performed and reformatted in the sagittal and coronal plane without the use of contrast. A dose lowering technique was utilized adhering to the principles of ALARA. COMPARISON: None. FINDINGS: No fractures. No subluxation. Prevertebral soft tissues and the C1-C2 interval are intact. No pneumothorax. Mild degenerative disc change from C5 through C7. Transaxial images at C2-C3, C3-C4, and C4-C5 are unremarkable. There is mild osteophytic narrowing of the right neuroforamina at C5-C6. The C6-C7 and C7 T1 levels are unremarkable. IMPRESSION: 1. Mild degenerative disc change from C5 through C7. 2. Mild osteophytic narrowing of the right neuroforamina at C5-C6 3. Otherwise negative study. The above report was generated using voice recognition software. It may contain grammatical, syntax or spelling errors. Electronically signed by: Williams Mancia M.D. 06/13/2017 12:16 PM Dictated Date/Time: 06/13/2017 12:14 PM
== END | disposition home or self-care (01) ==
LOC: C.CTS 11:04
PROVIDERS: ATTEND Family Medicine
DX: M50.10 Cervical disc disorder with radiculopathy, unspecified cervical region (principal)

== ENCOUNTER → 2017-07-06 | Outpatient (CLI) | payer OTHER ==
[2017-07-06 15:33] LABS: BASO % 0.5 %; BASO ABS # 0.03 K/uL (0-0.2); EOS % 0.9 %; EOS ABS # 0.06 K/uL (0-0.5); HEMATOCRIT 43.6 % (42-52); HEMOGLOBIN 15.6 g/dL (14.0-18.0); IG# 0.02 K/uL (0.00-0.02); LYMPH % 28.3 %; LYMPH ABS # 1.84 K/uL (1.2-3.4); MEAN CELL VOLUME 77.7 fL (80-100); MEAN CORPUSCULAR HEMOGLOBIN 27.8 pg (25-34); MEAN CORPUSCULAR HGB CONC 35.8 g/dl (32-36); MONO % 10.5 %; MONO ABS # 0.68 K/uL (0.11-0.59); NEUT % 59.5 %; NEUT ABS # 3.87 K/uL (1.4-6.5); PLATELET COUNT 203 K/uL (130-400); RED CELL DISTRIBUTION WIDTH CV 13.7 % (11.5-14.5); RED CELL DISTRIBUTION WIDTH SD 38.4 fL (36.4-46.3)
[2017-07-06 16:12] LABS: BLOOD UREA NITROGEN 10 mg/dl (7-18); GLUCOSE 81 mg/dl (70-99)
[2017-07-06 16:13] LABS: ALT/SGPT 40 U/L (12-78); AST/SGOT 21 U/L (15-37); CALCIUM 9.1 mg/dl (8.5-10.1); CARBON DIOXIDE 27 mmol/L (21-32); POTASSIUM 4.2 mmol/L (3.5-5.1); SODIUM 132 mmol/L (136-145)
[2017-07-06 16:14] LABS: ALKALINE PHOSPHATASE 80 U/L (45-117); TOTAL PROTEIN 7.7 gm/dl (6.4-8.2)
--- NOTE | 2017-07-07 22:46 | HOLTER SCAN ---
REFERRING PHYSICIAN: Azael Messer MD INTERPRETING PHYSICIAN: Sam Davenport JR MD. PROCEDURE: A 24-hour Holter monitor. CLINICAL INDICATION: Dizziness, bradycardia. INTERPRETATION: 1. The patient was monitored for 24 hours. The rhythm throughout the study was sinus rhythm. Minimum rate 39 beats per minute. Maximum rate 120 beats per minute. Average rate 64 beats per minute. There was one episode of sinus arrhythmia resulting in a 1.8 second pause. The VT interval was mildly increased and approximately 220 milliseconds. The QRS duration was normal. 2. There were very rare premature supraventricular beats noted. A total of 6 were counted during the entire study. No ventricular ectopy more complex than this. 3. No ventricular ectopy was noted. 4. There was a 1.8 second pause during an episode of sinus arrhythmia. There was no evidence of any atrioventricular block greater than the mild first-degree atrioventricular block. 5. The patient reported one episode of "palpitation/lightheaded." The rhythm was sinus rhythm without ectopy. Rate 70 beats per minute. The patient reported an episode of "short of breath, dizziness" The rhythm was sinus rhythm at a rate of 62 beats per minute without ectopy. There were 2 complaints of chest pressure. The rhythm was sinus rhythm without ectopy. The rate 63 beats per minute, and 85 beats per minute respectively with 2 the episodes. No ectopy noted. There was one complaint of "short of breath." The rhythm was sinus rhythm without ectopy. Rate 69 beats per minute. CONCLUSION: 1. Sinus rhythm with one episode of marked sinus arrhythmia. 2. Very rare premature supraventricular beats. These were asymptomatic. 3. Mild first degree atrioventricular block. 4. No arrhythmias or ST segment abnormalities noted during patient's complaints.
== END | disposition home or self-care (01) ==
LOC: C.LAB 13:04
PROVIDERS: ATTEND Family Medicine
DX: I10 Essential (primary) hypertension (principal); A69.20 Lyme disease, unspecified; E55.9 Vitamin D deficiency, unspecified